=== PATIENT | male | born 1955 | race Caucasian/White ===

== ENCOUNTER 2022-09-23 09:13 | Emergency (ER) | payer OTHER ==
[~2022-09-23] VITALS: Ht 167.6 cm; Wt 104.3 kg
--- NOTE | 2022-09-23 09:35 | NUR ---
pt in bed. Complaining of CP. IV started on LFA 20g. at the bedside
--- NOTE | 2022-09-23 09:40 | NUR ---
Patient [id number] able to express his own concerns. Daughter at bedside, per pts request. Patient with no signs of distress or discomfort. All safety precautions taken, will continue to monitor throughout shift.
[2022-09-23 10:01] LABS: CALCIUM, SERUM 8.6 mg/dL (8.5-10.1); CARBON DIOXIDE 32 mmol/L (21-32); CHLORIDE 103 mmol/L (98-107); GLUCOSE 143 mg/dL (74-106); POTASSIUM 4.1 mmol/L (3.5-5.1); SODIUM SERUM 138 mmol/L (136-145); UREA NITROGEN, BLOOD 14 mg/dL (7-18)
[2022-09-23 10:02] LABS: BASOPHILS % (AUTO) 0.7 % (0.0-2.0); EOSINOPHILS % (AUTO) 2.6 % (0.0-6.0); HEMATOCRIT 47 % (39-51); HEMOGLOBIN 15.6 g/dL (13.5-17.5); LYMPHOCYTES # (AUTO) 1.9 K/uL (0.8-4.8); LYMPHOCYTES % (AUTO) 33.4 % (20.0-44.0); MEAN CORPUSCULAR HGB CONC 33 g/dl (31.0-36.0); MEAN CORPUSCULAR VOLUME 86 fL (80-96); MONOCYTES # (AUTO) 0.5 K/uL (0.1-1.30); MONOCYTES % (AUTO) 9.4 % (2.0-12.0); NEUTROPHILS % (AUTO) 53.9 % (43.0-81.0); PLATELET COUNT (AUTO) 307 K/uL (150-450); RED BLOOD CELL COUNT(AUTO) 5.46 MIL/uL (4.5-6.0); WHITE BLOOD COUNT (AUTO) 5.6 K/uL (4.3-11.0)
--- NOTE | 2022-09-23 11:05 | NUR ---
Patient in bed with no signs of distress.
[2022-09-23] MEDS ORDERED: LIDOCAINE 5% (PATCH) 1 EA PATCH TP STA (11:09)
[2022-09-23] MEDS ORDERED: ACETAMINOPHEN ES 500 MG TABLET ONE (11:20)
[2022-09-23] MEDS ORDERED: LIDOCAINE 5% (PATCH) 1 EA PATCH TP ONE (11:20)
[2022-09-23] MEDS ORDERED: ACETAMINOPHEN ES 500 MG TABLET PO ONE (11:30)
[2022-09-23] MEDS ORDERED: ACET325T53 PO (11:36)
[2022-09-23] MEDS ORDERED: LIDO30AD10 TP (11:36)
--- NOTE | 2022-09-23 12:19 | NUR ---
Discussed discharge plan with patient, verbalized agreement.
[2022-09-23 12:26] VITALS: BP 135/88
== END 2022-09-23 12:26 | disposition home or self-care (01) ==
LOC: ER 09:32
DX: R07.89 Other chest pain (principal); I10 Essential (primary) hypertension; E78.00 Pure hypercholesterolemia, unspecified
CPT/HCPCS: 36415; 71045-TC; 80048-TC; 84484-TC; 85025-TC; 85378-TC